=== PATIENT | female | born 1940 | race Caucasian/White ===

== ENCOUNTER → 2017-03-13 13:55 | Outpatient (CLI) | payer MEDICARE, BC | END | disposition home or self-care (01) | LOC: D.MAMMO 10:15 | DX: Z12.31 Encounter for screening mammogram for malignant neoplasm of breast (principal) ==

== ENCOUNTER 2017-12-05 23:19 | Emergency (ER) | payer MEDICARE, BC ==
[~2017-12-05] VITALS: Ht 172.7 cm; Wt 96.4 kg
[2017-12-05 23:27] VITALS: Ht 172.7 cm; Wt 96.4 kg
[2017-12-05] MEDS ORDERED: LEVOXYL75 MCG PO (23:34)
[2017-12-05] MEDS ORDERED: COZAAR100 MG PO (23:34)
[2017-12-05] MEDS ORDERED: NORVASC5 MG PO (23:34)
[2017-12-05] MEDS ORDERED: LOZOL1.25 MG PO (23:34)
[2017-12-05] MEDS ORDERED: OMEPRAZOLE20 M1 PO (23:34)
[2017-12-05] MEDS ORDERED: OXYBUTYNIN CHLOR5 MG PO (23:35)
[2017-12-06] MEDS ORDERED: ULTRAM50 MG PO (01:26)
[2017-12-06 01:41] VITALS: BP 138/66
== END 2017-12-06 01:42 | disposition home or self-care (01) ==
LOC: D.ER 23:19
DX: M79.602 Pain in left arm (principal); W19.XXXA Unspecified fall, initial encounter; Y93.89 Activity, other specified; Y92.019 Unspecified place in single-family (private) house as the place of occurrence of the external cause

== ENCOUNTER 2018-03-01 15:23 | Emergency (ER) | payer OTHER, MEDICARE, BC ==
[~2018-03-01] VITALS: Ht 172.7 cm; Wt 81.8 kg
[~2018-03-01 15:23] MED LIST: COZAAR100 MG PO; LEVOXYL75 MCG PO; LOZOL1.25 MG PO; NORVASC5 MG PO; OMEPRAZOLE20 M1 PO; OXYBUTYNIN CHLOR5 MG PO; ULTRAM50 MG PO
[2018-03-01 15:28] VITALS: Ht 172.7 cm; Wt 81.8 kg
[2018-03-01 19:40] VITALS: BP 165/78
== END 2018-03-01 19:39 | disposition home or self-care (01) ==
LOC: D.ER 15:23
DX: S16.1XXA Strain of muscle, fascia and tendon at neck level, initial encounter (principal); V43.62XA Car passenger injured in collision with other type car in traffic accident, initial encounter; Y93.89 Activity, other specified; Y92.410 Unspecified street and highway as the place of occurrence of the external cause; S13.120A Subluxation of C1/C2 cervical vertebrae, initial encounter; M54.6 Pain in thoracic spine; I10 Essential (primary) hypertension; K21.9 Gastro-esophageal reflux disease without esophagitis

== ENCOUNTER 2018-04-30 08:00 | Outpatient (CLI) | payer MEDICARE, BC ==
[2018-03-01 15:28] VITALS: BMI 27.4
== END 2018-04-30 09:00 | disposition home or self-care (01) ==
LOC: D.MAMMO 08:00
DX: Z12.31 Encounter for screening mammogram for malignant neoplasm of breast (principal)

== ENCOUNTER 2020-09-14 20:00 | Outpatient (CLI) | payer MEDICARE, BC ==
[2020-06-24 04:36] VITALS: BMI 28.9
[~2020-09-14 20:00] MED LIST changes: +ASCORBIC ACID500 MG PO; +CITRACAL + D E1 EACH PO; +COREG25 MG PO; +MACRODANTIN100 MG PO; +SYNTHROID75 MCG PO; +TIMOPTIC 0.5 % O5 ML RIGHT EYE; +VITAMIN D-32000 UNI2 PO
== END 2020-09-14 23:59 | disposition home or self-care (01) ==
LOC: D.MAMMO 20:00
PROVIDERS: ATTEND Family Medicine
DX: Z12.31 Encounter for screening mammogram for malignant neoplasm of breast (principal)

== ENCOUNTER → 2020-10-24 14:29 | Outpatient (CLI) | payer MEDICARE, BC ==
[2020-06-24 04:36] VITALS: BMI 28.9
== END | disposition home or self-care (01) ==
LOC: D.HCCECHO 14:29
PROVIDERS: ATTEND Internal Medicine Cardiovascular Disease
DX: I10 Essential (primary) hypertension (principal)